=== PATIENT | male | born 1935 | race Caucasian/White ===

== ENCOUNTER 2016-11-12 22:22 | Inpatient (IN) | payer MEDICARE, BC ==
[2016-11-12 23:59] LABS: Anisocytosis Slight; CH 17.1; CHCM 25.8; HDW 3.74; Hypochromasia Marked; MCH 17.3 pg (25.0-35.0); MCV 66.7 fL (80.0-100.0); Mean Platelet Volume 8.1; Microcytosis Marked; Poikilocytosis Slight; RBC 2.91 m/uL (4.30-5.90); RDW 16.5 % (11.5-15.5); WBC 5.6 k/uL (3.8-10.6); WBC (Perox) 5.63
[2016-11-13 00:06] LABS: ALT 32 U/L (21-72); AST 21 U/L (17-59); Alkaline Phosphatase 72 U/L (38-126); Anion Gap 13 mmol/L; Blood Urea Nitrogen 15 mg/dL (9-20); Calcium 9.5 mg/dL (8.4-10.2); Carbon Dioxide 24 mmol/L (22-30); Chloride 105 mmol/L (98-107); Glucose 164 mg/dL (74-99); HCT 19.4 % (39.0-53.0); MCHC 25.9 g/dL (31.0-37.0); Magnesium 1.5 mg/dL (1.6-2.3); Non-African American GFR(MDRD) >60 (>60 ml/min/1.73 sqM); Potassium 4.2 mmol/L (3.5-5.1); Sodium 142 mmol/L (137-145); Total Bilirubin 0.4 mg/dL (0.2-1.3); Total Protein 6.2 g/dL (6.3-8.2)
[2016-11-13 00:14] LABS: INR 1.1 (<1.1); Partial Thromboplastin Time 24.4 sec (22.0-30.0); Prothrombin Time 11.1 sec (9.0-12.0)
[2016-11-13] MEDS ORDERED: SODIUM CHLORIDE 0.9% 500 ML IV STA (00:14)
--- NOTE | 2016-11-13 00:17 | ED ---
General Adult HPI - General Chief complaint: Recheck/Abnormal Lab/Rx Stated complaint: abnormal labs, sent by dr Time Seen by Provider: 11/12/16 22:57 Source: patient, RN notes reviewed, old records reviewed Mode of arrival: ambulatory Limitations: no limitations - History of Present Illness Initial comments: This is an 81-year-old male here for evaluation. Patient was sent by his own doctor for evaluation of GI bleed. Patient denies any blood in his stool, patient did have outpatient lab testing is positive for a low hemoglobin. Patient had x-rays of weakness chest pain source of breath. Patient has no blood thinning medications. Patient has no abdominal pain. No vomiting of bloody emesis, no blood in his stools. Patient denies dark stools, does admit large stools. States he never seems to have had this problem before. No prior history of transfusion. - Related Data Home Medications Medication Instructions Recorded Confirmed Unable To Assess [Unable to Assess] 11/12/16 11/12/16 Allergies Allergy/AdvReac Type Severity Reaction Status Date / Time No Known Allergies Allergy Verified 11/12/16 23:28 Review of Systems ROS Statement: Those systems with pertinent positive or pertinent negative responses have been documented in the HPI. ROS Other: All systems not noted in ROS Statement are negative. Past Medical History Past Medical History: Diabetes Mellitus, Hyperlipidemia, Hypertension History of Any Multi-Drug Resistant Organisms: None Reported Past Surgical History: Cholecystectomy Past Psychological History: No Psychological Hx Reported Smoking Status: Former smoker Past Alcohol Use History: Occasional Past Drug Use History: None Reported General Exam Limitations: no limitations General appearance: alert, in no apparent distress Head exam: Present: atraumatic, normocephalic, normal inspection Eye exam: Present: normal appearance, PERRL, EOMI. Absent: scleral icterus, conjunctival injection, periorbital swelling ENT exam: Present: normal exam, mucous membranes moist Neck exam: Present: normal inspection. Absent: tenderness, meningismus, lymphadenopathy Respiratory exam: Present: normal lung sounds bilaterally. Absent: respiratory distress, wheezes, rales, rhonchi, stridor Cardiovascular Exam: Present: regular rate, normal rhythm, normal heart sounds. Absent: systolic murmur, diastolic murmur, rubs, gallop, clicks GI/Abdominal exam: Present: soft, normal bowel sounds. Absent: distended, tenderness, guarding, rebound, rigid Extremities exam: Present: normal inspection, full ROM, normal capillary refill. Absent: tenderness, pedal edema, joint swelling, calf tenderness Back exam: Present: normal inspection Neurological exam: Present: alert, oriented X3, CN II-XII intact Psychiatric exam: Present: normal affect, normal mood Skin exam: Present: warm, dry, intact, normal color. Absent: rash Course Vital Signs 11/12/16 22:47 Temperature 98.9 F Pulse Rate 105 H Respiratory 20 Rate Blood Pressure 132/59 O2 Sat by Pulse 98 Oximetry - Reevaluation(s) Reevaluation #1: 11/13/16 00:15 Patient while mildly tachycardiac remains in no acute distress EKG Findings - EKG Comments: EKG Findings:: EKG shows A. fib rate 99, QRS 134, QTC 490 Medical Decision Making - Medical Decision Making 81 male here for evaluation of low hemoglobin. Patient will be admitted for further and continued evaluation, resuscitation resuscitated given transfusion and will be admitted for cause of anemia - Lab Data Result diagrams: 11/12/16 23:22 11/12/16 23:22 Lab Results 11/12/16 11/12/16 11/12/16 Range/Units 23:22 23:22 23:22 WBC 5.6 (3.8-10.6) k/uL RBC 2.91 L (4.30-5.90) m/uL Hgb 5.0 L* (13.0-17.5) gm/dL Hct 19.4 L* (39.0-53.0) % MCV 66.7 L (80.0-100.0) fL MCH 17.3 L (25.0-35.0) pg MCHC 25.9 L (31.0-37.0) g/dL RDW 16.5 H (11.5-15.5) % Plt Count 286 (150-450) k/uL PT 11.1 (9.0-12.0) sec INR 1.1 (<1.1) APTT 24.4 (22.0-30.0) sec Sodium 142 (137-145) mmol/L Potassium 4.2 (3.5-5.1) mmol/L Chloride 105 (98-107) mmol/L Carbon Dioxide 24 (22-30) mmol/L Anion Gap 13 mmol/L BUN 15 (9-20) mg/dL Creatinine 0.92 (0.66-1.25) mg/dL Est GFR (MDRD) Af Amer >60 (>60 ml/min/1.73 sqM) Est GFR (MDRD) Non-Af >60 (>60 ml/min/1.73 sqM) Glucose 164 H (74-99) mg/dL Calcium 9.5 (8.4-10.2) mg/dL Magnesium 1.5 L (1.6-2.3) mg/dL Total Bilirubin 0.4 (0.2-1.3) mg/dL AST 21 (17-59) U/L ALT 32 (21-72) U/L Alkaline Phosphatase 72 (38-126) U/L Total Protein 6.2 L (6.3-8.2) g/dL Albumin 3.9 (3.5-5.0) g/dL Disposition Clinical Impression: Anemia, Symptomatic anemia Disposition: ADMITTED IP TO THIS [facility] Condition: Serious Referrals: Karl Pérez MD [Primary Care Provider] - 1-2 days
[2016-11-13 00:43] LABS: Creatine Kinase MB 0.8 ng/mL (0.0-2.4); Troponin I 0.02 ng/mL (0.000-0.034)
[2016-11-13 00:57] LABS: Add Differential Manual Differential
[2016-11-13 01:01] LABS: Nucleated Red Blood Cells 0 /100 WBC (0-0); Total Cells Counted 100
[2016-11-13 01:02] LABS: Polychromasia Present
[2016-11-13 02:29] VITALS: BMI 31.1
[2016-11-13] MEDS: SODIUM CHLORIDE 0.9% 1,000 ML IV ONE ×2 (03:25→03:26)
[2016-11-13 06:55] LABS: Glucose,Whole Blood 150 mg/dL (75-99)
[2016-11-13] MEDS ORDERED: Magnesium Replacement Protocol 1 EACH MISC MISCELLANE PRN (08:25)
[2016-11-13] MEDS: MAGNESIUM SULFATE-D5W PMX 1 GM in DEXTROSE/WATER 1 100ML.BAG IVPB SCH ×2 (09:05→12:00)
[2016-11-13] MEDS ORDERED: PEG 3350-NA SULF,BICARB,CL/KCL 4,000 ML BOTTLE PO ONE (10:51)
--- NOTE | 2016-11-13 10:55 | P.GSCN ---
History of Present Illness Consult date: 11/13/16 Reason for Consult: Anemia History of present illness: Patient hospitalized after he was contacted by his primary care physician that his hemoglobin was low on yesterday's outpatient lab draw. He describes some dizzy episodes. May be 1 or 2 episodes of melena. No rectal bleeding. No history of similar events in the past. Last colonoscopy 5 years ago. He has never had a upper endoscopy. No history of ulcer disease. No abdominal pain. No constipation or diarrhea. He is to receive 2 units of packed red blood cells for hemoglobin of 5. Review of Systems The patient denies any acute changes in his vision or hearing, no dysphagia or odynophagia, no chest pain or shortness of breath, no dysuria or hematuria, no headache, no runny nose, no rectal bleeding or melena, no unexplained weight loss Past Medical History Past Medical History: Diabetes Mellitus, Hyperlipidemia, Hypertension History of Any Multi-Drug Resistant Organisms: None Reported Past Surgical History: Cholecystectomy Past Anesthesia/Blood Transfusion Reactions: No Reported Reaction Past Psychological History: No Psychological Hx Reported Smoking Status: Former smoker Past Alcohol Use History: Occasional Past Drug Use History: None Reported Medications and Allergies Home Medications Medication Instructions Recorded Confirmed Type Metoprolol Tartrate [Lopressor] 100 mg PO BID 11/13/16 11/13/16 History Ramipril [Altace] 2.5 mg PO DAILY 11/13/16 11/13/16 History metFORMIN HCL 1,000 mg PO BID 11/13/16 11/13/16 History Allergies Allergy/AdvReac Type Severity Reaction Status Date / Time No Known Allergies Allergy Verified 11/12/16 23:28 Surgical - Exam Vital Signs Temp Pulse Resp BP Pulse Ox 98.9 F 105 H 20 132/59 98 11/12/16 22:47 11/12/16 22:47 11/12/16 22:47 11/12/16 22:47 11/12/16 22:47 Physical exam: General: Well-developed, well-nourished HEENT: Normocephalic, sclerae nonicteric Abdomen: Nontender, nondistended Extremities: No edema Neuro: Alert and oriented Results - Labs 11/12/16 23:22 11/12/16 23:22 Abnormal Lab Results - Last 24 Hours (Table) 11/13/16 Range/Units 06:54 POC Glucose (mg/dL) 150 H (75-99) mg/dL Assessment and Plan (1) Symptomatic anemia Narrative/Plan: Will proceed with upper and lower endoscopy tomorrow. Risks of bleeding and bowel perforation reviewed. Status: Acute
[2016-11-13 11:44] LABS: Glucose,Whole Blood 243 mg/dL (75-99)
[2016-11-13] MEDS: PANTOPRAZOLE 40 MG/10 ML VIAL IVP SCH (12:00)
[2016-11-13] MEDS: INSULIN LISPRO (humaLOG) 300 UNIT/3 ML VIAL SQ SCH ×3 (12:20→20:46)
--- NOTE | 2016-11-13 13:23 | P.HPIM ---
History of Present Illness H&P Date: 11/13/16 Chief Complaint: Anemia Patient is an 81-year-old male, with medical history significant for diabetes mellitus type 2, hyperlipidemia, hypertension, coronary artery disease previous myocardial infarction, and atrial fibrillation. Patient states that he was evaluated in Dr. Pérez's office yesterday for symptoms of lightheadedness that started approximately 2 months ago and progressively got worse associated with shortness of breath, bilateral leg swelling and heartburn. Last colonoscopy 5-10 years ago according to patient. No history of hematemesis, hematochezia, or melena. No history of constipation or diarrhea. No history of excessive NSAID use. No history of EtOH abuse. Patient was found to be profoundly anemic and presented to the emergency department with a hemoglobin of 5. EKG on admission showed atrial fibrillation with left axis deviation and right bundle branch block. Patient denies syncope, chills, fevers, nausea, vomiting, chest pain, abdominal pain, GI bleeding, constipation or diarrhea. Patient was transfused with 2 units of packed red blood cells and admitted to the selective care unit with consults to Dr. Mackenzie surgical service and cardiology. Patient is currently scheduled for an EGD and colonoscopy tomorrow. Past Medical History Past Medical History: Atrial Fibrillation, Coronary Artery Disease (CAD), Diabetes Mellitus, Hyperlipidemia, Hypertension, Myocardial Infarction (VT) History of Any Multi-Drug Resistant Organisms: None Reported Past Surgical History: Cholecystectomy, Heart Catheterization Past Anesthesia/Blood Transfusion Reactions: No Reported Reaction Past Psychological History: No Psychological Hx Reported Smoking Status: Former smoker Past Alcohol Use History: Occasional Past Drug Use History: None Reported Medications and Allergies Home Medications Medication Instructions Recorded Confirmed Type Metoprolol Tartrate [Lopressor] 100 mg PO BID 11/13/16 11/13/16 History Ramipril [Altace] 2.5 mg PO DAILY 11/13/16 11/13/16 History metFORMIN HCL 1,000 mg PO BID 11/13/16 11/13/16 History Allergies Allergy/AdvReac Type Severity Reaction Status Date / Time No Known Allergies Allergy Verified 11/12/16 23:28 Physical Exam Vitals: Vital Signs Temp Pulse Pulse Resp BP BP Pulse Ox 11/13/16 12:00 98 F 70 16 143/63 97 11/13/16 08:00 97 F L 85 16 152/74 97 11/13/16 07:03 82 18 175/80 98 11/13/16 06:38 97 F L 85 16 152/74 97 11/13/16 06:28 90 18 179/79 98 11/13/16 06:21 97.4 F L 80 18 157/69 97 11/13/16 05:40 84 18 138/66 98 11/13/16 04:34 69.5 F L 87 18 144/68 99 11/13/16 04:04 69.1 F L 89 18 158/77 98 11/13/16 04:00 96.9 F L 88 18 158/77 98 11/13/16 03:47 68.9 F L 88 18 159/83 99 11/13/16 03:32 97.1 F L 73 18 151/71 99 11/13/16 03:17 97.1 F L 67 18 165/71 98 11/13/16 03:09 96.9 F L 91 18 168/76 98 11/13/16 00:55 96.9 F L 91 16 168/76 98 11/13/16 00:34 77 18 134/63 98 Intake and Output 11/12/16 11/13/16 11/13/16 22:59 06:59 14:59 Intake Total 360 570 Balance 360 570 Intake: Amount of Fluid Infused ( 50 ml) Oral 260 Blood Product 310 310 Rc As-1 Unit 310 [id number] Rc As-1 Unit 0 310 [id number] Other: Voiding Method Toilet Toilet # Voids 2 Weight 93 kg GENERAL: Pt awake and alert, well-appearing, well-nourished, and in no acute distress. HEAD: Atraumatic, normocephalic. EYES: Pupils equal, round, and reactive to light, extraocular movements intact, sclera anicteric, conjunctiva are normal. ENT: Oropharynx clear without exudates. Moist mucous membranes. Tongue smooth, pink, no lesions, protrudes in midline. NECK:Normal range of motion, supple without lymphadenopathy or JVD. LUNGS: Breath sounds clear to auscultation bilaterally. No wheezes, rales, or rhonchi. HEART: Heart S1, S2, no S3 or S4. Irregularly irregular. No murmurs, rubs or gallops. ABDOMEN: Soft, nontender, nondistended, normoactive bowel sounds. No guarding, no rebound. No masses or organomegaly appreciated. EXTREMITIES: 2+ peripheral pulses. 1+ edema to bilateral lower extremities. No calf tenderness. NEUROLOGICAL: Pt oriented x 3. Cranial nerves II through XII grossly intact. Strength and sensation grossly intact. PSYCH: Normal mood, normal affect. SKIN: Warm, dry, intact. Normal turgor. No rashes or lesions. Results CBC & Chem 7: 11/12/16 23:22 11/12/16 23:22 Labs: Abnormal Lab Results - Last 24 Hours (Table) 11/13/16 11/13/16 Range/Units 06:54 11:30 POC Glucose (mg/dL) 150 H 243 H (75-99) mg/dL Thrombosis Risk Factor Assmnt - DVT/VTE Prophylaxis DVT/VTE Prophylaxis: Mechanical Prophylaxis ordered - Choose All That Apply Any of the Below Risk Factors Present?: No Each Risk Factor Represents 3 Points: Age 75 years or older Thrombosis Risk Factor Assessment Total Risk Factor Score: 3 Thrombosis Risk Factor Assessment Level: Moderate Risk Assessment and Plan Plan: Impression and plan: 1. Anemia, present on admission, associated with shortness of breath and lightheadedness. Hemoglobin 5, status post transfusion of 2 units of PRBC. We' ll recheck hemoglobin this afternoon. Surgical service has seen and evaluated patient. Patient is scheduled for an EGD and colonoscopy tomorrow. 2. Chronic atrial fibrillation. Consult to cardiology service has been requested, recommendations pending. 3. Coronary artery disease with history of previous myocardial infarction. 4. Diabetes mellitus type 2. Hemoglobin A1c pending. Continue metformin, humalog sliding scale. 5. Hypertension. Continue metoprolol and lisinopril. 6. History of hyperlipidemia. 7. Hypomagnesemia. Replace magnesium per protocol. 8. History of nicotine dependence. 9. GI prophylaxis. Continue Protonix. 10. DVT prophylaxis. Continue knee-high stockings and pneumatic compression sleeves to bilateral lower extremities. The above impression and plan have been discussed and directed by Dr. Guevara. Ileana PALMER acting as scribe for Dr. Guevara.
[2016-11-13 13:35] LABS: Anisocytosis Slight; Basophils # (A) 0.1 k/uL (0-0.2); Basophils % (A) 1 %; CH 19.4; CHCM 26.7; Eosinophils # (A) 0.2 k/uL (0-0.7); Eosinophils % (A) 3 %; HCT 25.4 % (39.0-53.0); HDW 4.84; Hypochromasia Marked; Luc % (Auto) 4; Lymphocytes # (A) 1.3 k/uL (1.0-4.8); Lymphocytes % (A) 23 %; MCH 19.8 pg (25.0-35.0); Mean Platelet Volume 7.8; Microcytosis Marked; Monocytes # (A) 0.4 k/uL (0-1.0); Monocytes % (A) 6 %; Neutrophils # (A) 3.5 k/uL (1.3-7.7); Neutrophils % (A) 63 %; Poikilocytosis Marked; RBC 3.51 m/uL (4.30-5.90); RDW 19.1 % (11.5-15.5); WBC 5.6 k/uL (3.8-10.6); WBC (Perox) 6.03
[2016-11-13 13:45] LABS: MCHC 27.3 g/dL (31.0-37.0)
[2016-11-13 13:46] LABS: HGB 6.9 gm/dL (13.0-17.5); MCV 72.4 fL (80.0-100.0)
[2016-11-13 14:00] LABS: Manual Review Performed
--- NOTE | 2016-11-13 14:36 | P.CRDCN ---
History of Present Illness Consult date: 11/13/16 Requesting physician: Jose Guevara Jr Consult reason: shortness of breath Chief complaint: Dizziness and shortness of breath History of present illness: This is a pleasant 81-year-old gentleman with history of hypertension , diabetes, hyperlipidemia, prior nicotine dependence for which she states she quit smoking a couple of months ago, rare EtOH. Patient was admitted to the hospital because of low hemoglobin. He states that over the past couple of weeks he has noticed intermittent dizziness with associated shortness of breath. He had gone to his physician's office for regular checkup for his diabetes, lab work was drawn and EKG was performed there. Patient states that he left the office, went for lunch, went home and relax on the couch. A police shift commander showed up at his home, because apparently the office had called their earlier for the patient to be admitted and there was no response. Patient was then directed to come to the emergency room for admission. Hemoglobin on admission 5.0, platelet count 286, potassium 4.2, BUN 15, creatinine 0.9. Magnesium level I.5. Troponin 0.020. Overall, patient states he's been feeling fairly well other than these brief episodes of dizziness and occasional shortness of breath. He denies any chest pain. He states that he did notice some black in his stool. EKG on arrival here showed multifocal atrial tachycardia. Past Medical History Past Medical History: Atrial Fibrillation, Coronary Artery Disease (CAD), Diabetes Mellitus, Hyperlipidemia, Hypertension, Myocardial Infarction ([place]) History of Any Multi-Drug Resistant Organisms: None Reported Past Surgical History: Cholecystectomy, Heart Catheterization Past Anesthesia/Blood Transfusion Reactions: No Reported Reaction Past Psychological History: No Psychological Hx Reported Smoking Status: Former smoker Past Alcohol Use History: Occasional Past Drug Use History: None Reported Medications and Allergies Home Medications Medication Instructions Recorded Confirmed Type Metoprolol Tartrate [Lopressor] 100 mg PO BID 11/13/16 11/13/16 History Ramipril [Altace] 2.5 mg PO DAILY 11/13/16 11/13/16 History metFORMIN HCL 1,000 mg PO BID 11/13/16 11/13/16 History Allergies Allergy/AdvReac Type Severity Reaction Status Date / Time No Known Allergies Allergy Verified 11/12/16 23:28 Physical Exam Vitals: Vital Signs Temp Pulse Pulse Resp BP BP Pulse Ox 11/13/16 12:00 98 F 70 16 143/63 97 11/13/16 08:00 97 F L 85 16 152/74 97 11/13/16 07:03 82 18 175/80 98 11/13/16 06:38 97 F L 85 16 152/74 97 11/13/16 06:28 90 18 179/79 98 11/13/16 06:21 97.4 F L 80 18 157/69 97 11/13/16 05:40 84 18 138/66 98 11/13/16 04:34 69.5 F L 87 18 144/68 99 11/13/16 04:04 69.1 F L 89 18 158/77 98 11/13/16 04:00 96.9 F L 88 18 158/77 98 11/13/16 03:47 68.9 F L 88 18 159/83 99 11/13/16 03:32 97.1 F L 73 18 151/71 99 11/13/16 03:17 97.1 F L 67 18 165/71 98 11/13/16 03:09 96.9 F L 91 18 168/76 98 11/13/16 00:55 96.9 F L 91 16 168/76 98 11/13/16 00:34 77 18 134/63 98 Intake and Output 11/12/16 11/13/16 11/13/16 22:59 06:59 14:59 Intake Total 360 570 Balance 360 570 Intake: Amount of Fluid Infused ( 50 ml) Oral 260 Blood Product 310 310 Rc As-1 Unit 310 [id number] Rc As-1 Unit 0 310 [id number] Other: Voiding Method Toilet Toilet # Voids 2 Weight 93 kg PHYSICAL EXAMINATION: HEENT: Head is atraumatic, normocephalic. Pupils equal, round. Neck is supple. There is no elevated jugular venous pressure. HEART EXAMINATION: S1 and S2 systolic murmur regularly irregular CHEST EXAMINATION: Lungs are clear to auscultation and precussion. No chest wall tenderness is noted on palpation or with deep breathing. ABDOMEN: Soft, nontender. Bowel sounds are heard. No organomegaly noted. EXTREMITIES: 2+ peripheral pulses with trace evidence of peripheral edema and no calf tenderness noted. NEUROLOGIC patient is awake, alert and oriented -3. . Results 11/12/16 23:22 11/12/16 23:22 Current Medications Generic Name Dose Route Start Last Admin Trade Name Lynn PRN Reason Stop Dose Admin Insulin Human Lispro 0 unit 11/13/16 12:30 11/13/16 12:24 Humalog SQ Not Given ACHS [facility] Protocol Lisinopril 10 mg 11/14/16 09:00 Zestril PO DAILY SAHRA Metformin HCl 1,000 mg 11/13/16 17:30 Glucophage PO AC-BID SAHRA Metoprolol Tartrate 100 mg 11/13/16 21:00 Lopressor PO BID SAHRA Miscellaneous Information 1 each 11/13/16 08:25 Magnesium Per Protocol MISCELLANE DAILY PRN Per Protocol Protocol Pantoprazole Sodium 40 mg 11/13/16 09:00 11/13/16 12:00 Protonix IVP Not Given DAILY SAHRA Intake and Output 11/12/16 11/13/16 11/13/16 22:59 06:59 14:59 Intake Total 360 570 Balance 360 570 Intake: Amount of Fluid Infused ( 50 ml) Oral 260 Blood Product 310 310 Rc As-1 Unit 310 [id number] Rc As-1 Unit 0 310 [id number] Other: Voiding Method Toilet Toilet # Voids 2 Weight 93 kg EKG Interpretations (text) EKG shows a multifocal atrial tachycardia Assessment and Plan Plan: Assessment and plan #1 symptoms of shortness of breath and dizziness, evidence of significant anemia , hemoglobin on arrival 5.0, patient to receive 2 units of packed red blood cells. MCV 66.7. #2 hypertension #3 hyperlipidemia #4 diabetes #5 arrhythmia, original EKG interpreted atrial fibrillation, actually a multifocal atrial tachycardia. # 6 hypomagnesemia Plan We will obtain an echocardiogram with Doppler study. Replace magnesium. Patient's shortness of breath is likely secondary to anemia, we will however requested chest x-ray. Further recommendations to follow. DNP note has been reviewed, I agree with a documented findings and plan of care. Patient was seen and examined.
--- NOTE | 2016-11-13 15:00 | XR ---
EXAMINATION TYPE: XR chest 2V DATE OF EXAM: 11/13/2016 2:56 PM COMPARISON: NONE HISTORY: Shortness of breath FINDINGS: The lungs are clear and there is no pneumothorax, pleural effusion, or focal pneumonia. Cardiomegal y noted with degenerative change of the spine. Pleural-based thickening seen. Tiny left pleural effusion. Coarsened interstitium likely reflects chr onic interstitial lung disease. Prominence the pulmonary artery suggests pulmonary arterial hypertens ion. Postsurgical change within the abdomen. IMPRESSION: 1. No acute process. 2. Correlate for chronic interstitial lung disease or fibrosis. 3. Tiny left pleural effusion. Mild venous congestion not excluded correlate clinically.
[2016-11-13 17:01] LABS: Glucose,Whole Blood 118 mg/dL (75-99)
[2016-11-13] MEDS: metFORMIN 500 MG TAB PO SCH (17:29)
[2016-11-13 20:41] LABS: Glucose,Whole Blood 108 mg/dL (75-99)
[2016-11-13] MEDS: METOPROLOL TARTRATE 50 MG TAB PO SCH (20:52)
[2016-11-13 21:04] LABS: Anisocytosis Slight; CH 19.3; CHCM 26.8; HCT 25.9 % (39.0-53.0); HDW 4.97; HGB 7.2 gm/dL (13.0-17.5); Hypochromasia Marked; MCH 19.8 pg (25.0-35.0); MCV 71.5 fL (80.0-100.0); Mean Platelet Volume 8.2; Microcytosis Marked; Poikilocytosis Marked; RBC 3.62 m/uL (4.30-5.90); RDW 18.8 % (11.5-15.5); WBC 6.4 k/uL (3.8-10.6)
[2016-11-13 21:06] LABS: MCHC 27.6 g/dL (31.0-37.0)
[2016-11-14 04:05] LABS: Anisocytosis Slight; CH 19.5; CHCM 27.6; HCT 23.3 % (39.0-53.0); HDW 4.82; Hypochromasia Marked; MCH 19.3 pg (25.0-35.0); MCV 70.4 fL (80.0-100.0); Mean Platelet Volume 7.6; Microcytosis Marked; Poikilocytosis Marked; RBC 3.32 m/uL (4.30-5.90); RDW 19.3 % (11.5-15.5); WBC 5.8 k/uL (3.8-10.6)
[2016-11-14 04:17] LABS: Anion Gap 9 mmol/L; Blood Urea Nitrogen 10 mg/dL (9-20); Calcium 8.9 mg/dL (8.4-10.2); Carbon Dioxide 26 mmol/L (22-30); Chloride 109 mmol/L (98-107); Glucose 125 mg/dL (74-99); Magnesium 1.9 mg/dL (1.6-2.3); Non-African American GFR(MDRD) >60 (>60 ml/min/1.73 sqM); Potassium 4.5 mmol/L (3.5-5.1); Sodium 144 mmol/L (137-145)
[2016-11-14 04:22] LABS: HGB 6.4 gm/dL (13.0-17.5); MCHC 27.5 g/dL (31.0-37.0)
[2016-11-14 06:25] LABS: Glucose,Whole Blood 143 mg/dL (75-99)
[2016-11-14] MEDS: INSULIN LISPRO (humaLOG) 300 UNIT/3 ML VIAL SQ SCH ×4 (06:27→20:58)
[2016-11-14] MEDS: metFORMIN 500 MG TAB PO SCH ×2 (06:27→17:17)
[2016-11-14] MEDS: LISINOPRIL 10 MG TAB PO SCH (09:10)
[2016-11-14] MEDS: METOPROLOL TARTRATE 50 MG TAB PO SCH ×2 (09:11→20:59)
--- NOTE | 2016-11-14 10:46 | ECHOF ---
Referral Reason:sob MEASUREMENTS -------- HEIGHT: 172.7 cm WEIGHT: 93.0 kg BP: 143/63 RVIDd: 3.3 cm (< 3.3) IVSd: 1.4 cm (0.6 - 1.1) LVIDd: 4.9 cm (3.9 - 5.3) LVPWd: 1.2 cm (0.6 - 1.1) IVSs: 1.7 cm LVIDs: 3.5 cm LVPWs: 1.8 cm LA Diam: 4.2 cm (2.7 - 3.8) LAESV Index (A-L): 31.43 ml/m Ao Diam: 4.1 cm (2.0 - 3.7) AV Cusp: 2.3 cm (1.5 - 2.6) MV EXCURSION: 10.412 mm (> 18.000) MV EF SLOPE: 62 mm/s (70 - 150) EPSS: 1.2 cm MV E Chace: 1.36 m/s MV DecT: 203 ms MV A Chace: 0.81 m/s MV E/A Ratio: 1.69 RAP: 5.00 mmHg RVSP: 43.42 mmHg FINDINGS -------- Sinus rhythm. This was a technically good study. There is moderate concentric left ventricular hypertrophy. Overall left ventricular systolic function is normal with, an EF between 55 - 60 %. The right ventricle is mildly enlarged. LA is midly dilated 29-33ml/m2. The right atrium is normal in size. Aortic valve is trileaflet and is mildly thickened. The mitral valve leaflets are mildly thickened. Mild mitral annular calcification present. Mild mitral regurgitation is present. Mild tricuspid regurgitation present. There is mild pulmonary hypertension. The right ventricular systolic pressure, as measured by Doppler, is 43.42mmHg. The pulmonic valve is normal. The aortic root is dilated measuring 4.1cm. The inferior vena cava is mildly dilated. There is no pericardial effusion. CONCLUSIONS -------- 1. Sinus rhythm. 2. Mild mitral annular calcification present. 3. Mild mitral regurgitation is present. 4. Mild tricuspid regurgitation present. 5. There is mild pulmonary hypertension. 6. The right ventricular systolic pressure, as measured by Doppler, is 43.42mmHg. 7. The pulmonic valve is normal. 8. The aortic root is dilated measuring 4.1cm. 9. The inferior vena cava is mildly dilated. 10. There is no pericardial effusion. 11. This was a technically good study. 12. There is moderate concentric left ventricular hypertrophy. 13. Overall left ventricular systolic function is normal with, an EF between 55 - 60 %. 14. The right ventricle is mildly enlarged. 15. LA is midly dilated 29-33ml/m2. 16. The right atrium is normal in size. 17. Aortic valve is trileaflet and is mildly thickened. 18. The mitral valve leaflets are mildly thickened. AUTOMATION DRIVER: Lisa Rushing RDCS
[2016-11-14] MEDS: SODIUM CHLORIDE 0.9% 1,000 ML IV SCH ×2 (11:11→21:02)
[2016-11-14] MEDS: PANTOPRAZOLE 40 MG/10 ML VIAL IVP SCH (11:12)
[2016-11-14 11:43] LABS: Glucose,Whole Blood 133 mg/dL (75-99)
[2016-11-14] MEDS ORDERED: FUROSEMIDE 10 MG/ML 2 ML VIAL IV ONE (11:59)
[2016-11-14 12:01] LABS: Anisocytosis Slight; Basophils # (A) 0.1 k/uL (0-0.2); Basophils % (A) 1 %; CHCM 27.9; Eosinophils # (A) 0.1 k/uL (0-0.7); Eosinophils % (A) 3 %; HDW 5.11; HGB 7.8 gm/dL (13.0-17.5); Hypochromasia Marked; Luc # (Auto) 0.14; Luc % (Auto) 3; Lymphocytes # (A) 1.1 k/uL (1.0-4.8); Lymphocytes % (A) 22 %; MCH 20.9 pg (25.0-35.0); MCV 74.6 fL (80.0-100.0); Mean Platelet Volume 7.8; Microcytosis Moderate; Monocytes # (A) 0.3 k/uL (0-1.0); Monocytes % (A) 6 %; Neutrophils # (A) 3.4 k/uL (1.3-7.7); Neutrophils % (A) 66 %; Poikilocytosis Marked; RBC 3.76 m/uL (4.30-5.90); RDW 19.7 % (11.5-15.5); WBC 5.1 k/uL (3.8-10.6); WBC (Perox) 5.27
--- NOTE | 2016-11-14 12:19 | P.PN ---
Subjective Principal diagnosis: Anemia Patient is an 81-year-old male with medical history significant for diabetes mellitus type 2, hyperlipidemia, hypertension, coronary artery disease , previous myocardial infarction, and irregular heartbeat. Patient admitted with evidence of symptomatic anemia with hemoglobin of 5 on admission. Patient status post 2 units of PRBC with hemoglobin of 7.2 last night and 6.4 this morning. Two more units of PRBC has been ordered. No evidence of active bleeding. Patient is scheduled to undergo EGD and colonoscopy this afternoon. No new complaints overnight. Patient noted to be slightly hypertensive with systolic BP in 160's after blood transfusion. Chest x-ray from yesterday with evidence of chronic interstitial lung disease or fibrosis with small left pleural effusion, mild venous congestion not excluded. Echocardiogram with mild pulmonary hypertension, preserved LV funtion with an EF between 55-60%. Objective - Vital Signs Vital signs: Vital Signs Temp 97.2 F L 11/14/16 11:05 Pulse 52 L 11/14/16 11:05 Resp 18 11/14/16 11:05 BP 152/92 11/14/16 11:05 Pulse Ox 94 L 11/14/16 11:05 Intake & Output 11/13/16 11/14/16 11/14/16 18:59 06:59 18:59 Intake Total 1020 0 0 Balance 1020 0 0 Weight 91.4 kg Intake: Oral 710 Blood Product 310 0 0 Rc As-1 Unit 0 0 [id number] Rc As-1 Unit 0 [id number] Rc As-1 Unit 310 [id number] Other: Voiding Method Toilet Toilet Toilet # Voids 2 1 # Bowel Movements 1 - Exam GENERAL: Pt awake and alert, well-appearing, well-nourished, and in no acute distress. HEAD: Atraumatic, normocephalic. EYES: Pupils equal, round, and reactive to light, extraocular movements intact, sclera anicteric, conjunctiva are normal. ENT: Oropharynx clear without exudates. Moist mucous membranes. Tongue smooth, pink, no lesions, protrudes in midline. NECK:Normal range of motion, supple without lymphadenopathy or JVD. LUNGS: Breath sounds diminished to auscultation bilaterally. No wheezes, rales , or rhonchi. HEART: Heart S1, S2, no S3 or S4. Regular rate and rhythm. No murmurs, rubs or gallops. ABDOMEN: Soft, nontender, nondistended, normoactive bowel sounds. No guarding, no rebound. No masses or organomegaly appreciated. EXTREMITIES: 2+ peripheral pulses. 1+ edema to bilateral lower extremities. No calf tenderness. NEUROLOGICAL: Pt oriented x 3. Cranial nerves II through XII grossly intact. Strength and sensation grossly intact. PSYCH: Normal mood, normal affect. SKIN: Warm, dry, intact. Normal turgor. No rashes or lesions. - Labs CBC & Chem 7: 11/14/16 03:08 11/14/16 03:08 Labs: Abnormal Lab Results - Last 24 Hours (Table) 11/13/16 11/13/16 11/13/16 Range/Units 13:08 16:51 20:40 RBC 3.51 L (4.30-5.90) m/uL Hgb 6.9 L* D (13.0-17.5) gm/dL Hct 25.4 L (39.0-53.0) % MCV 72.4 L D (80.0-100.0) fL MCH 19.8 L (25.0-35.0) pg MCHC 27.3 L (31.0-37.0) g/dL RDW 19.1 H (11.5-15.5) % Chloride (98-107) mmol/L Glucose (74-99) mg/dL POC Glucose (mg/dL) 118 H 108 H (75-99) mg/dL 11/13/16 11/14/16 11/14/16 Range/Units 20:41 03:08 03:08 RBC 3.62 L 3.32 L (4.30-5.90) m/uL Hgb 7.2 L 6.4 L* (13.0-17.5) gm/dL Hct 25.9 L 23.3 L (39.0-53.0) % MCV 71.5 L 70.4 L (80.0-100.0) fL MCH 19.8 L 19.3 L (25.0-35.0) pg MCHC 27.6 L 27.5 L (31.0-37.0) g/dL RDW 18.8 H 19.3 H (11.5-15.5) % Chloride 109 H (98-107) mmol/L Glucose 125 H (74-99) mg/dL POC Glucose (mg/dL) (75-99) mg/dL 11/14/16 11/14/16 Range/Units 06:24 11:35 RBC (4.30-5.90) m/uL Hgb (13.0-17.5) gm/dL Hct (39.0-53.0) % MCV (80.0-100.0) fL MCH (25.0-35.0) pg MCHC (31.0-37.0) g/dL RDW (11.5-15.5) % Chloride (98-107) mmol/L Glucose (74-99) mg/dL POC Glucose (mg/dL) 143 H 133 H (75-99) mg/dL Assessment and Plan Plan: Impression and plan: 1. Anemia, present on admission, associated with shortness of breath and lightheadedness. Hemoglobin 6.4, status post transfusion of 2 units of PRBC. We'll transfuse 2 more units of PRBC. Surgical service has seen and evaluated patient. Patient is scheduled for an EGD and colonoscopy this afternoon. 2. Arrhytmia, EKG on admission multifocal atrial tachycardia. Cardiology service has seen and evaluated patient. Echocardiogram with evidence of preserved LV function 55-60%; mild pulmonary hypertension. 3. Coronary artery disease with history of previous myocardial infarction. 4. Diabetes mellitus type 2. Hemoglobin A1c 6. Continue metformin, humalog sliding scale. 5. Hypertension. Continue metoprolol and lisinopril. Will give patient 20 mg of IV Lasix 1 for suspected mild fluid overload secondary to blood transfusion. 6. History of hyperlipidemia. 7. Mild pulmonary hypertension. 8. Chronic interstitial lung disease or fibrosis. 8. Tiny left pleural effusion. Mild venous congestion not excluded. Patient 20 mg of IV Lasix 1 for suspected mild fluid overload secondary to blood transfusion. 9. History of nicotine dependence. 10. GI prophylaxis. Continue Protonix. 10. DVT prophylaxis. Continue knee-high stockings and pneumatic compression sleeves to bilateral lower extremities. The above impression and plan have been discussed and directed by Dr. Guevara. Ileana PALMER acting as scribe for Dr. Guevara.
[2016-11-14 12:25] LABS: Manual Review Performed
[2016-11-14 12:27] LABS: Target Cells Present
[2016-11-14] MEDS ORDERED: IV FLUID CONTINUATION 700 ML IV ONE (14:56)
--- NOTE | 2016-11-14 14:59 | P.PN ---
Subjective Principal diagnosis: Anemia This is a pleasant 81-year-old gentleman with history of hypertension , diabetes, hyperlipidemia, prior nicotine dependence for which she states she quit smoking a couple of months ago, rare EtOH. Patient was admitted to the hospital because of low hemoglobin. He states that over the past couple of weeks he has noticed intermittent dizziness with associated shortness of breath. He had gone to his physician's office for regular checkup for his diabetes, lab work was drawn and EKG was performed there. Patient states that he left the office, went for lunch, went home and relax on the couch. A police judge showed up at his home, because apparently the office had called their earlier for the patient to be admitted and there was no response. Patient was then directed to come to the emergency room for admission. Hemoglobin on admission 5.0, platelet count 286, potassium 4.2, BUN 15, creatinine 0.9. Magnesium level I.5. Troponin 0.020. Overall, patient states he's been feeling fairly well other than these brief episodes of dizziness and occasional shortness of breath. He denies any chest pain. He states that he did notice some black in his stool. EKG on arrival here showed multifocal atrial tachycardia. 11/14/16 patient did receive blood transfusion, hemoglobin today is 7.8. Overall he states he is feeling much better. He is scheduled today to undergo an EGD and colonoscopy. Echocardiogram with Doppler study was performed which revealed an ejection fraction of 55-60%. Objective - Vital Signs Vital signs: Vital Signs Temp 97.2 F L 11/14/16 12:00 Pulse 52 L 11/14/16 12:00 Resp 18 11/14/16 12:00 BP 152/92 11/14/16 12:00 Pulse Ox 96 11/14/16 12:00 Intake & Output 11/13/16 11/14/16 11/14/16 18:59 06:59 18:59 Intake Total 1020 0 0 Balance 1020 0 0 Weight 91.4 kg Intake: Oral 710 Blood Product 310 0 0 Rc As-1 Unit 0 0 [id number] Rc As-1 Unit 0 [id number] Rc As-1 Unit 310 [id number] Other: Voiding Method Toilet Toilet Toilet # Voids 2 1 # Bowel Movements 1 - Exam PHYSICAL EXAMINATION: HEENT: Head is atraumatic, normocephalic. Pupils equal, round. Neck is supple. There is no elevated jugular venous pressure. HEART EXAMINATION: S1 and S2 systolic murmur regularly irregular CHEST EXAMINATION: Lungs are clear to auscultation and precussion. No chest wall tenderness is noted on palpation or with deep breathing. ABDOMEN: Soft, nontender. Bowel sounds are heard. No organomegaly noted. EXTREMITIES: 2+ peripheral pulses with trace evidence of peripheral edema and no calf tenderness noted. NEUROLOGIC patient is awake, alert and oriented -3. - Labs CBC & Chem 7: 11/14/16 11:13 11/14/16 03:08 Labs: Abnormal Lab Results - Last 24 Hours (Table) 11/13/16 11/13/16 11/13/16 Range/Units 16:51 20:40 20:41 RBC 3.62 L (4.30-5.90) m/uL Hgb 7.2 L (13.0-17.5) gm/dL Hct 25.9 L (39.0-53.0) % MCV 71.5 L (80.0-100.0) fL MCH 19.8 L (25.0-35.0) pg MCHC 27.6 L (31.0-37.0) g/dL RDW 18.8 H (11.5-15.5) % Chloride (98-107) mmol/L Glucose (74-99) mg/dL POC Glucose (mg/dL) 118 H 108 H (75-99) mg/dL 11/14/16 11/14/16 11/14/16 Range/Units 03:08 03:08 06:24 RBC 3.32 L (4.30-5.90) m/uL Hgb 6.4 L* (13.0-17.5) gm/dL Hct 23.3 L (39.0-53.0) % MCV 70.4 L (80.0-100.0) fL MCH 19.3 L (25.0-35.0) pg MCHC 27.5 L (31.0-37.0) g/dL RDW 19.3 H (11.5-15.5) % Chloride 109 H (98-107) mmol/L Glucose 125 H (74-99) mg/dL POC Glucose (mg/dL) 143 H (75-99) mg/dL 11/14/16 11/14/16 Range/Units 11:13 11:35 RBC 3.76 L (4.30-5.90) m/uL Hgb 7.8 L (13.0-17.5) gm/dL Hct 28.0 L (39.0-53.0) % MCV 74.6 L (80.0-100.0) fL MCH 20.9 L (25.0-35.0) pg MCHC 28.0 L (31.0-37.0) g/dL RDW 19.7 H (11.5-15.5) % Chloride (98-107) mmol/L Glucose (74-99) mg/dL POC Glucose (mg/dL) 133 H (75-99) mg/dL Assessment and Plan Plan: Assessment and plan #1 symptoms of shortness of breath and dizziness, evidence of significant anemia , hemoglobin on arrival 5.0, 7.8 this morning post transfusion... #2 hypertension #3 hyperlipidemia #4 diabetes #5 arrhythmia, original EKG interpreted atrial fibrillation, actually a multifocal atrial tachycardia. # 6 hypomagnesemia Plan From cardiology's perspective, we will recommend to continue the patient on his current medications. He is scheduled today to undergo an EGD and colonoscopy. DNP note has been reviewed, I agree with a documented findings and plan of care. Patient was seen and examined.
[2016-11-14] MEDS ORDERED: PROPOFOL 10 MG/ML 20 ML VIAL IV ONE (15:30)
[2016-11-14] MEDS ORDERED: LIDOCAINE 1% INJ 10MG/ML (20 ML MDV) ONE (15:30)
[2016-11-14 16:52] LABS: Glucose,Whole Blood 116 mg/dL (75-99)
[2016-11-14 18:33] LABS: Anisocytosis Moderate; CH 21.3; CHCM 28.5; HCT 30.3 % (39.0-53.0); HDW 4.97; HGB 8.6 gm/dL (13.0-17.5); Hypochromasia Marked; MCH 21.2 pg (25.0-35.0); MCHC 28.5 g/dL (31.0-37.0); MCV 74.1 fL (80.0-100.0); Mean Platelet Volume 8.4; Microcytosis Moderate; Poikilocytosis Marked; RBC 4.09 m/uL (4.30-5.90); RDW 20.5 % (11.5-15.5); WBC 7.2 k/uL (3.8-10.6)
--- NOTE | 2016-11-14 18:54 | P.PCN ---
Date of Procedure: 11/14/16 Procedure(s) Performed: PREOPERATIVE DIAGNOSIS: Anemia, GI bleed POSTOPERATIVE DIAGNOSIS: Mild gastritis, mild distal esophagitis, hepatic flexure polyp 2, diverticulosis PROCEDURE: 1. EGD with biopsy 2. Colonoscopy with snare polypectomy [place]: [facility] [place] SURGEON: Benja Mackenzie M.D. SPECIMENS: Antrum, hepatic flexure polyp ENDOSCOPIC PROCEDURE: The patient was on the endoscopy table in the left decubitus position. The Olympus gastroscope was inserted into the oropharynx and passed under direct visualization to the region of the third portion of the duodenum. From that point the scope was slowly withdrawn inspecting all surfaces carefully. There were no neoplastic inflammatory or polypoid lesions throughout the duodenum. The pylorus was widely patent. The stomach was carefully inspected. There was gastritis present. A biopsy of the antrum took place to rule out H. pylori. Retroflexion revealed a normal hiatus. The esophagus was then carefully examined. There was mild distal esophagitis present. No biopsies were taken. The remainder the esophagus appeared normal. The patient was kept on the endoscopy table in the left decubitus position. The Olympus colonoscope was inserted into the anus and passed under direct visualization to the base of the cecum. I could see the ileocecal valve quite nicely. I could not pass the scope beyond that to evaluate the base of the cecum although from a distance I was able to visualize the majority of the base of the cecum. The appendiceal orifice was not visualized. This was despite a variety of different techniques. The ascending colon appeared normal. At the hepatic flexure 2 separate small polyps were identified and removed using the snare with cautery technique. The remainder of the transverse, descending, sigmoid and rectum appeared normal. There was extensive diverticulosis noted throughout the left colon. Digital rectal examination was normal. The patient was taken to the recovery room in stable condition per anesthesia guidelines. RECOMMENDATIONS: Await biopsy results. Resume diet. Continue anemia workup.
[2016-11-14 20:41] LABS: Glucose,Whole Blood 132 mg/dL (75-99)
[2016-11-15 00:25] LABS: Anisocytosis Moderate; CH 21.2; CHCM 28.5; HCT 28.7 % (39.0-53.0); HDW 5.01; HGB 8.2 gm/dL (13.0-17.5); Hypochromasia Marked; MCH 21.2 pg (25.0-35.0); MCHC 28.7 g/dL (31.0-37.0); MCV 73.7 fL (80.0-100.0); Mean Platelet Volume 8.1; Microcytosis Marked; Poikilocytosis Marked; RDW 20.5 % (11.5-15.5); WBC 8.1 k/uL (3.8-10.6)
[2016-11-15 06:12] LABS: Glucose,Whole Blood 127 mg/dL (75-99)
[2016-11-15] MEDS: INSULIN LISPRO (humaLOG) 300 UNIT/3 ML VIAL SQ SCH ×2 (06:22→11:38)
[2016-11-15] MEDS: metFORMIN 500 MG TAB PO SCH (06:25)
[2016-11-15] MEDS: SODIUM CHLORIDE 0.9% 1,000 ML IV SCH (06:26)
[2016-11-15 06:30] LABS: Anisocytosis Moderate; CH 21.2; CHCM 28.7; HDW 4.91; HGB 7.5 gm/dL (13.0-17.5); Hypochromasia Marked; MCH 21.2 pg (25.0-35.0); MCHC 28.8 g/dL (31.0-37.0); MCV 73.4 fL (80.0-100.0); Mean Platelet Volume 7.7; Microcytosis Marked; Poikilocytosis Marked; RBC 3.55 m/uL (4.30-5.90); RDW 20.9 % (11.5-15.5); WBC 6.2 k/uL (3.8-10.6)
[2016-11-15 06:42] LABS: Anion Gap 10 mmol/L; Blood Urea Nitrogen 15 mg/dL (9-20); Carbon Dioxide 23 mmol/L (22-30); Chloride 110 mmol/L (98-107); Glucose 119 mg/dL (74-99); Non-African American GFR(MDRD) >60 (>60 ml/min/1.73 sqM); Potassium 4.3 mmol/L (3.5-5.1); Sodium 143 mmol/L (137-145)
[2016-11-15] MEDS: LISINOPRIL 10 MG TAB PO SCH (08:20)
[2016-11-15] MEDS: METOPROLOL TARTRATE 50 MG TAB PO SCH (08:20)
[2016-11-15] MEDS: PANTOPRAZOLE 40 MG/10 ML VIAL IVP SCH (08:20)
[2016-11-15 08:27] VITALS: RESP 18
[2016-11-15 08:51] LABS: Reticulocyte % 2.1 % (0.5-2.0)
[2016-11-15 11:07] VITALS: BP 153/78; PULSE 56; TEMP 97.1
[2016-11-15 11:33] LABS: % Iron Saturation 4.9 % (20-50)
[2016-11-15 11:43] LABS: Glucose,Whole Blood 113 mg/dL (75-99)
--- NOTE | 2016-11-15 15:11 | P.DS ---
Providers Date of admission: 11/13/16 00:17 Expected date of discharge: 11/15/16 Attending physician: Jose Guevara Consults: 11/13/16 08:22 Consult Physician Urgent Consulting Provider: Benja Mackenzie Consult Reason/Comments: anemia Do you want consulting provider notified?: Yes 11/13/16 11:31 Consult Physician Urgent Consulting Provider: Dick Gallegos Consult Reason/Comments: leg swelling, shortness of breath, hx of irregular heart beat Do you want consulting provider notified?: Yes Primary care physician: Karl [facility] Course: Patient is an 81-year-old male with medical history significant for diabetes mellitus type 2, hyperlipidemia, hypertension, coronary artery disease , previous myocardial infarction, and arrhythmias. Patient was admitted with evidence of symptomatic anemia with hemoglobin of 5 on admission with no evidence of overt GI bleeding. Chest x-ray with evidence of chronic interstitial lung disease or fibrosis with small left pleural effusion. Patient was evaluated by cardiology who recommended to continue patient on same home medications as before admission. Echocardiogram with evidence of mild pulmonary hypertension, preserved LV funtion with an EF between 55-60%. Patient underwent an EGD and a colonoscopy with snare polypectomy by Dr. Mackenzie on 2016 with evidence of mild gastritis; mild distal esophagitis; hepatic flexure polyps 2; and diverticulosis. Patient did receive a total of 4 units of PRBCs during hospital stay with discharge hemoglobin of 7.5. Iron studies confirmed iron deficiency anemia. Patient was started on iron supplement and PPI. Patient felt stable for discharge to home with follow-up in the outpatient setting. Discharge diagnoses: 1. Anemia, iron deficiency. Hemoglobin on admission 5 status post 4 units of PRBC. EGD and colonoscopy with evidence of mild gastritis, mild esophagitis, extensive diverticulosis throughout left colon. 2. Arrhytmia, EKG on admission multifocal atrial tachycardia. Echocardiogram with evidence of preserved LV function 55-60%; mild pulmonary hypertension. 3. Coronary artery disease with history of previous myocardial infarction. 4. Diabetes mellitus type 2. 5. Hypertension. 6. History of hyperlipidemia. 7. Mild pulmonary hypertension. 8. Chronic interstitial lung disease or fibrosis. 8. Tiny left pleural effusion. Mild venous congestion not excluded. 9. History of nicotine dependence. The above impression and plan have been discussed and directed by Dr. Guevara. Ileana PALMER acting as scribe for Dr. Guevara. Pertinent Studies: EKG; echocardiogram with Doppler; chest x-ray Procedures: EGD; colonoscopy Patient Condition at Discharge: Good Plan - Discharge Summary New Discharge Prescriptions: Ferrous Sulfate [Feosol] 325 mg PO DAILY #30 tab Omeprazole 20 mg PO HS #30 cap Discharge Medication List Metoprolol Tartrate [Lopressor] 100 mg PO BID 11/13/16 [History] Ramipril [Altace] 2.5 mg PO DAILY 11/13/16 [History] metFORMIN HCL 1,000 mg PO BID 11/13/16 [History] Ferrous Sulfate [Feosol] 325 mg PO DAILY #30 tab 11/15/16 [Rx] Omeprazole 20 mg PO HS #30 cap 11/15/16 [Rx] Follow up Appointment(s)/Referral(s): Karl Pérez MD [Primary Care Provider] - 12/03/16 1:15 pm Patient Instructions/Handouts: Diverticulitis (DC), Iron Rich Diet (DC), Iron Deficiency Anemia (DC) Discharge Disposition: HOME SELF-CARE Pending Studies Pending Results: Pathology from biopsies of stomach and colon.
== END 2016-11-15 15:01 | disposition home or self-care (01) | DRG 812 ==
LOC: EC 22:22 → 6SEL 11-13 00:17
PROVIDERS: ADMIT Family Medicine; ATTEND Family Medicine
PROC: 30233N1 Transfusion of Nonautologous Red Blood Cells into Peripheral Vein, Percutaneous Approach (ICD-10-PCS; principal; 2016-11-13)
PROC: 0DBE8ZZ Excision of Large Intestine, Via Natural or Artificial Opening Endoscopic (ICD-10-PCS; 2016-11-14)
PROC: 0DB68ZX Excision of Stomach, Via Natural or Artificial Opening Endoscopic, Diagnostic (ICD-10-PCS; 2016-11-14 14:30)
DX: D50.9 Iron deficiency anemia, unspecified (principal); J84.9 Interstitial pulmonary disease, unspecified; I47.1 Supraventricular tachycardia; I27.2 Other secondary pulmonary hypertension; E87.70 Fluid overload, unspecified; I48.2 Chronic atrial fibrillation; E83.42 Hypomagnesemia; D12.3 Benign neoplasm of transverse colon; E11.9 Type 2 diabetes mellitus without complications; I10 Essential (primary) hypertension; E78.5 Hyperlipidemia, unspecified; I25.10 Atherosclerotic heart disease of native coronary artery without angina pectoris; I25.2 Old myocardial infarction; I45.10 Unspecified right bundle-branch block; K20.9 Esophagitis, unspecified; K29.70 Gastritis, unspecified, without bleeding; K57.90 Diverticulosis of intestine, part unspecified, without perforation or abscess without bleeding; Z87.891 Personal history of nicotine dependence; Z79.84 Long term (current) use of oral hypoglycemic drugs; Z79.899 Other long term (current) drug therapy
CPT/HCPCS: 36415; 43239; 45385; 71020; 80048; 80053; 82550; 82553; 82728; 83036; 83540; 83550; 83735; 84484; 85025; 85027; 85045; 85610; 85730; 86850; 86900; 86901; 86920; 88305; 88342; 93005; 93306; 99153; 99285